=== PATIENT | female | born 1955 | race Caucasian/White ===

== ENCOUNTER 2020-06-19 14:51 | Observation (INO) | payer SELFPAY ==
[~2020-06-19] VITALS: Ht 165.1 cm; Wt 137.8 kg
[2020-06-19] VITALS (21 sets, daily range): BP systolic 112–206; BP diastolic 50–92
[2020-06-19] MEDS ORDERED: BUPIVACAINE/PF 0.5% 30ML VIAL ONE (15:39)
[2020-06-19] MEDS ORDERED: ONDANSETRON HCL 4 MG/2 ML VIAL ONE (15:39)
[2020-06-19] MEDS ORDERED: MORPHINE SULFATE 4 MG/1ML SYG ONE ×2 (15:39→16:47)
[2020-06-19] MEDS ORDERED: DIAZEPAM 5 MG/ML 2 ML SYG ONE (16:46)
[2020-06-19] MEDS ORDERED: PROPOFOL 10 MG/ML 20ML VIAL IV ONE ×2 (17:07→20:11)
[2020-06-19 18:16] LABS: BASOPHILS % (AUTO) 0.3 % (0.0-5.0); EOSINOPHILS % (AUTO) 0.1 % (0.0-8.0); HEMATOCRIT 44.7 % (36-48); LYMPHOCYTES % (AUTO) 11.3 % (21.0-51.0); MEAN CORPUSCULAR HGB CONC 31.5 g/dL (32.0-36.0); MEAN CORPUSCULAR VOLUME 82.3 fL (79-99); MONOCYTES % (AUTO) 7.9 % (3.0-13.0); PLATELET COUNT (AUTO) 368 K/uL (130-400); RED BLOOD CELL COUNT(AUTO) 5.43 MIL/uL (4.00-5.50); RED CELL DISTRIBUTION WIDTH 13.9 % (11.0-15.5); WHITE BLOOD COUNT (AUTO) 17.2 K/uL (4.8-10.8)
[2020-06-19 18:19] LABS: CREATININE 0.9 mg/dL (0.5-1.5); POTASSIUM 4.1 mmol/L (3.5-5.1)
[2020-06-19 18:24] LABS: BILIRUBIN,TOTAL 0.8 mg/dL (0.2-1.0); TOTAL PROTEIN, SERUM 8.4 g/dL (6.0-8.3)
[2020-06-19] MEDS ORDERED: MORPHINE SULFATE 2 MG/ML 1ML SYG IV PRN (18:45)
[2020-06-19] MEDS ORDERED: LACTULOSE 20 GM/30 ML UDCUP PO PRN (18:45)
[2020-06-19] MEDS ORDERED: ONDANSETRON HCL 4 MG/2 ML VIAL IV PRN (18:45)
[2020-06-19] MEDS ORDERED: ACETAMINOPHEN 325 MG TAB PO PRN ×2 (18:45)
[2020-06-19] MEDS: SODIUM CHLORIDE 0.9% 1000ML 1,000 ML IV SCH ×2 (18:45→20:30)
[2020-06-19] MEDS ORDERED: LABETALOL 20 MG/4 ML DISP.SYRIN IV PRN (18:45)
[2020-06-19] MEDS ORDERED: LABETALOL 20 MG/4 ML DISP.SYRIN IV ONE (19:05)
[2020-06-19] MEDS ORDERED: LIDOCAINE HCL-MPF 1% 5ML AMP IJ ONE (20:10)
[2020-06-19] MEDS ORDERED: SUCCINYLCHOLINE CHLORIDE 20 MG/ML 10 ML VIAL ONE (20:10)
[2020-06-19] MEDS: INSULIN HUMULIN R 100 UNIT/ML 3ML SQ SCH (21:00)
[2020-06-19] MEDS: FAMOTIDINE/PF 20 MG/2 ML VIAL IV SCH (22:00)
[2020-06-20] VITALS (7 sets, daily range): BP systolic 124–178; BP diastolic 49–68
[2020-06-20] MEDS: SODIUM CHLORIDE 0.9% 1000ML 1,000 ML IV SCH ×2 (04:45→14:45)
[2020-06-20 04:46] LABS: BASOPHILS % (AUTO) 0.4 % (0.0-5.0); EOSINOPHILS % (AUTO) 0.4 % (0.0-8.0); HEMATOCRIT 40.1 % (36-48); LYMPHOCYTES % (AUTO) 16.5 % (21.0-51.0); MEAN CORPUSCULAR HEMOGLOBIN 25.6 pg (27.0-33.0); MEAN CORPUSCULAR HGB CONC 30.7 g/dL (32.0-36.0); MEAN CORPUSCULAR VOLUME 83.5 fL (79-99); MONOCYTES % (AUTO) 10.4 % (3.0-13.0); NEUTROPHILS % (AUTO) 71.8 % (40.0-77.0); PLATELET COUNT (AUTO) 303 K/uL (130-400); RED CELL DISTRIBUTION WIDTH 13.9 % (11.0-15.5); WHITE BLOOD COUNT (AUTO) 13.5 K/uL (4.8-10.8)
[2020-06-20 05:13] LABS: CREATININE 0.7 mg/dL (0.5-1.5); POTASSIUM 3.8 mmol/L (3.5-5.1)
[2020-06-20] MEDS: INSULIN HUMULIN R 100 UNIT/ML 3ML SQ SCH ×2 (07:30→11:30)
[2020-06-20] MEDS: FAMOTIDINE/PF 20 MG/2 ML VIAL IV SCH (08:28)
[2020-06-20] MEDS ORDERED: IBUP-2077 PO (10:29)
[2020-06-20] MEDS ORDERED: LISI10TA7 PO (10:37)
[2020-06-20] MEDS ORDERED: LABETALOL HCL 5 MG/ML 20ML VIAL IV SCH (10:45)
--- NOTE | 2020-06-20 14:39 | NUR ---
INITIAL SW spoke with patient. She states she lives alone. Patient has no home services or DME. Patient is able to complete ADL's and drives. PCP is MD at [facility]. Pharmacy is [facility] located in [place]. DCP is home. Patient has no insurance or benefits. She is a [place] citizen and has worked in the past. Patient was provided with community resources for post hospitalization follow up. Patient was also provided with Good RX card for prescriptions and educated on [facility] $4 medication program and [facility] $5 medication program. Patient is being assisted by [employer] for financial matters. Addendum: 06/20/20 at 1441 by SANDRO SPENCER Amended: Links added.
== END 2020-06-20 17:40 | disposition home or self-care (01) ==
LOC: EDH 14:51 → EDHIP 14:52 → 3AH 21:15
PROVIDERS: ADMIT Family Medicine; ATTEND Family Medicine
DX: S43.005A Unspecified dislocation of left shoulder joint, initial encounter (principal); I10 Essential (primary) hypertension; E11.9 Type 2 diabetes mellitus without complications; E66.01 Morbid (severe) obesity due to excess calories; Z96.653 Presence of artificial knee joint, bilateral; W01.0XXA Fall on same level from slipping, tripping and stumbling without subsequent striking against object, initial encounter; Y93.01 Activity, walking, marching and hiking; Y92.096 Garden or yard of other non-institutional residence as the place of occurrence of the external cause; Z68.43 Body mass index [BMI] 50.0-59.9, adult
CPT/HCPCS: 23655; 36415 ×2; 73020 ×3; 73030 ×2; 80048; 80053; 82948 ×2; 85025 ×2; 93005; 96374; 96375; 96376; 99285; A4606; G0378 ×22; J0330; J1815; J2270 ×2; J2405; J2704 ×2; J3360; J3490 ×5